=== PATIENT | female | born 1950 | race American Indian/Alaskan Native ===

== ENCOUNTER 2019-01-23 08:35 | Day surgery (SDC) | payer MEDICARE, BC ==
[~2019-01-23] VITALS: Ht 162.6 cm; Wt 73.7 kg
[~2019-01-23 08:35] MED LIST: AMLO5 PO; ATOR10 PO; AZELASTINE137 MCG/0. INH; ESCI10 PO; IRBE150 PO; MAGOX 400400 MG PO
== END 2019-01-23 10:36 | disposition home or self-care (01) ==
LOC: ORSCSDS 08:35
DX: R19.5 Other fecal abnormalities (principal); D12.2 Benign neoplasm of ascending colon; K62.1 Rectal polyp; K57.30 Diverticulosis of large intestine without perforation or abscess without bleeding; K64.8 Other hemorrhoids; K21.9 Gastro-esophageal reflux disease without esophagitis; I10 Essential (primary) hypertension; F41.9 Anxiety disorder, unspecified; E78.5 Hyperlipidemia, unspecified; Z79.899 Other long term (current) drug therapy
CPT/HCPCS: 88305; J7120

== ENCOUNTER → 2022-01-20 | Outpatient (CLI) | payer MEDICARE, BC ==
[2022-01-20 11:42] LABS: BASOPHILS ABSOLUTE AUTO 0.05 K/mm3 (0.00-0.23); BASOPHILS PERCENT AUTO 1 % (0-2); EOSINOPHILS ABSOLUTE AUTO 0.13 K/mm3 (0.00-0.68); EOSINOPHILS PERCENT AUTO 2 % (0-6); Hematocrit 42.4 % (33.0-51.0); IMMATURE GRAN ABSOLUTE AUTO 0.02 K/mm3 (0.00-0.10); IMMATURE GRAN PERCENT AUTO 0 % (0-1); LYMPHOCYTES ABSOLUTE AUTO 1.26 K/mm3 (0.84-5.20); LYMPHOCYTES PERCENT AUTO 17 % (21-46); MONOCYTES ABSOLUTE AUTO 0.74 K/mm3 (0.16-1.47); MONOCYTES PERCENT AUTO 10 % (4-13); Mean Corpuscular HGB 30.8 pg (26.0-34.0); Mean Corpuscular Volume 93 fL (80-100); Mean Platelet Volume 11.3 fL (9.1-12.4); NEUTROPHILS ABSOLUTE AUTO 5.33 K/mm3 (1.96-9.15); NEUTROPHILS PERCENT AUTO 71 % (41-73); Platelet Count 208 K/mm3 (150-400); RDW Coefficient Variation 12.7 % (11.7-14.2); RDW Standard Deviation 43.3 fL (35.1-46.3); Red Blood Cell Count 4.55 M/mm3 (3.80-5.20); White Blood Cell Count 7.53 K/mm3 (4.00-11.30)
[2022-01-20 12:25] LABS: Albumin, Blood 3.9 g/dL (3.4-5.0); Albumin/Globulin Ratio 1.2 (0.8-1.8); Bilirubin, Total 0.5 mg/dL (0.1-1.0); Bun/Creatinine Ratio 21.9 (12.0-20.0); Calcium, Blood 8.6 mg/dL (8.5-10.1); Creatinine, Blood 1.14 mg/dL (0.40-1.00); Globulin, Blood 3.3 g/dL (2.2-4.0); Potassium, Blood 4.4 mmol/L (3.5-5.5); Total Protein, Blood 7.2 g/dL (6.4-8.2)
== END ==
LOC: LAB 11:35 → LAB SHORT 11:35
PROVIDERS: General Practice
DX: R53.81 Other malaise (principal); R82.90 Unspecified abnormal findings in urine
CPT/HCPCS: 80053; 82150; 85025; 87086

== ENCOUNTER 2022-02-09 05:56 | Day surgery (SDC) | payer MEDICARE, BC ==
[~2022-02-09] VITALS: Ht 160 cm; Wt 70.4 kg
[~2022-02-09 05:56] MED LIST changes: +Acerola C500 MG PO; +DEXL60CA3 PO; +MONT10T PO; +MULVITA PO; +NASACORT10.8 ML; +VIT1CAPS12 PO; +VITAMIN D310 MC4 PO; +ZINC15 PO
--- NOTE | 2022-02-09 06:54 | NUR ---
PT RECENTLY Ambulatory in Day Surgery WITH FRIEND. History, Chart, Medications and Allergies reviewed before start of procedure. Lungs clear T/O to Auscultation. Patient confirms NPO status and agrees with scheduled surgery. Pre-Op teaching done. Pt verbalizes understanding. Patient States Post-Procedure ride home has been arranged.
--- NOTE | 2022-02-09 10:24 | NUR ---
PT MEDICATED PER ANESTHESIA WITH 0.5MG OF IV HALDOL. PT OPENS EYES AND ANSWERS QUESTIONS ON COMMAND. IV FLUID BOLUS INFUSING. BP 105/54. HR 85. PT DENIES PAIN. DRESSING ABD X4 CDI.
--- NOTE | 2022-02-09 12:17 | NUR ---
PT ABLE TO DRESS WITH MINIMAL ASSIST. PT RIDE HOME AT BEDSIDE. PT ABLE TO AMBULATE TO W/ [place] ONLY. PT DENIES NAUSEA OR PAIN. DRESSING X4 CDI.
[2022-03-28] MEDS ORDERED: CIPR250 PO (17:52)
[2022-03-28] MEDS ORDERED: CLARITIN-D 121 EAC1 PO (17:54)
[2022-03-29] MEDS ORDERED: ASPI81CH PO (12:35)
== END 2022-02-09 23:59 | disposition home or self-care (01) ==
LOC: ORSCMMR 05:56 → ORD 07:30 → ORSCMMR 23:59
PROVIDERS: Surgery
PROC: BF031ZZ Plain Radiography of Gallbladder and Bile Ducts using Low Osmolar Contrast (ICD-10-PCS; principal; 2022-02-09 07:30)
PROC: 0FT44ZZ Resection of Gallbladder, Percutaneous Endoscopic Approach (ICD-10-PCS; principal; 2022-02-09 07:30)
DX: K80.10 Calculus of gallbladder with chronic cholecystitis without obstruction (principal); I10 Essential (primary) hypertension; K21.9 Gastro-esophageal reflux disease without esophagitis; N18.30 Chronic kidney disease, stage 3 unspecified; F41.9 Anxiety disorder, unspecified; Z79.899 Other long term (current) drug therapy
CPT/HCPCS: 74300; 88304; C1894; J0694; J1100; J1630; J2405; J2550; J2704; J3010; J7120

== ENCOUNTER 2023-03-18 07:39 | Day surgery (SDC) | payer MEDICARE, BC ==
[~2023-03-18] VITALS: Ht 162.6 cm; Wt 71.5 kg
[~2023-03-18 07:39] MED LIST changes: +ASPI81CH PO; +CIPR250 PO; +CLARITIN-D 121 EAC1 PO
[2023-03-18 09:42] VITALS: BP 113/78
== END 2023-03-18 09:45 | disposition home or self-care (01) ==
LOC: ORSCSDS 07:39
PROVIDERS: Internal Medicine Gastroenterology
PROC: 0DBH8ZX Excision of Cecum, Via Natural or Artificial Opening Endoscopic, Diagnostic (ICD-10-PCS; principal; 2023-03-18 09:00)
PROC: 0DBK8ZX Excision of Ascending Colon, Via Natural or Artificial Opening Endoscopic, Diagnostic (ICD-10-PCS; principal; 2023-03-18 09:00)
DX: Z12.11 Encounter for screening for malignant neoplasm of colon (principal); Z86.010 Personal history of colon polyps; D12.0 Benign neoplasm of cecum; D12.2 Benign neoplasm of ascending colon; K57.30 Diverticulosis of large intestine without perforation or abscess without bleeding; Z79.899 Other long term (current) drug therapy
CPT/HCPCS: 88305; J2704; J7120

== ENCOUNTER 2024-06-24 11:16 | Day surgery (SDC) | payer MEDICARE, BC ==
[~2024-06-24] VITALS: Ht 160 cm; Wt 67.2 kg
[~2024-06-24 11:16] MED LIST changes: +Lactated Ringer's 1,000 ML IV ONE
[2024-06-24] MEDS ORDERED: MAGCIT300 (11:54)
[2024-06-24] MEDS ORDERED: Calcium Carbon500 MG (11:54)
[2024-06-24] MEDS ORDERED: Vitamin B-12100 MCG (11:55)
[2024-06-24] MEDS ORDERED: ERGO400 (11:55)
[2024-06-24] MEDS ORDERED: Lactated Ringer's 1,000 ML IV ONE ×2 (12:09→16:30)
[2024-06-24] MEDS ORDERED: FentaNYL Citrate 50 MCG/ML 2 ML Injection ONE (12:44)
[2024-06-24] MEDS ORDERED: ePHEDrine Sulfate 50 MG/ML 1ML Injection ONE (13:35)
[2024-06-24] MEDS ORDERED: Lidocaine 1%-Epineph 1:200000 30 ML SDV INJ ONE (13:39)
[2024-06-24] MEDS ORDERED: Bacitracin Opth Ointment XX ONE (13:50)
[2024-06-24] MEDS ORDERED: Ondansetron HCl 2 MG / ML 2ML Vial ONE ×2 (15:11→15:46)
[2024-06-24] MEDS ORDERED: Phenylephrine HCl 100 MCG/ML-NS 10MLSYR (1MG/10ML) ONE (15:11)
--- NOTE | 2024-06-24 15:41 | NUR ---
06/24/24 1541 Veronique Mark PT. DENIES ANY PAIN. PT. WITH SATS 92% ON RA. PT. WITH ENC. TO TAKE SOME DEEP BREATHS. PT. DOESN'T RESPOND TO NAUSEA WHEN ASKED. PT. VERBALIZES BEING TOO WARM, COVERS PULLED BACK.
[2024-06-24] MEDS ORDERED: Metoclopramide HCl 5MG / ML 2ML Vial ONE (16:08)
--- NOTE | 2024-06-24 16:26 | NUR ---
06/24/24 1626 Veronique Mark PT. TAKEN TO SD. SATS DOWN TO 90% WHEN DOZING. PT. SATS AT TIMES 92% ON RA WITH ENC. OF DEEP BREATHS. PT. PUT ON 2L/NC UNTIL PT. MORE AWAKE.
[2024-06-24 16:27] VITALS: BP 116/65
== END 2024-06-24 18:35 | disposition home or self-care (01) ==
LOC: ORSCSDS 11:16
PROVIDERS: Otolaryngology
PROC: 0GTK0ZZ Resection of Thyroid Gland, Open Approach (ICD-10-PCS; principal; 2024-06-24 12:30)
DX: C73 Malignant neoplasm of thyroid gland (principal); C77.1 Secondary and unspecified malignant neoplasm of intrathoracic lymph nodes; I10 Essential (primary) hypertension; K21.9 Gastro-esophageal reflux disease without esophagitis; J45.909 Unspecified asthma, uncomplicated; Z79.899 Other long term (current) drug therapy
CPT/HCPCS: 88305; 88307; A9270; J2371; J2405; J2765; J3010; J7120

== ENCOUNTER 2024-11-02 08:57 | Emergency (ER) | payer OTHER, MEDICARE, BC ==
[~2024-11-02] VITALS: Ht 160 cm; Wt 71.7 kg
[~2024-11-02 08:57] MED LIST changes: +Calcium Carbon500 MG; +ERGO400; -Lactated Ringer's 1,000 ML IV ONE; +MAGCIT300; +Vitamin B-12100 MCG
[2024-11-02] MEDS ORDERED: Ondansetron HCl 2 MG / ML 2ML Vial IV ONE (09:15)
[2024-11-02] MEDS ORDERED: FentaNYL Citrate 50 MCG/ML 2 ML Injection IV ONE ×2 (09:20→10:00)
[2024-11-02] MEDS ORDERED: Ondansetron HCl 2 MG / ML 2ML Vial ONE (09:22)
[2024-11-02] MEDS ORDERED: Etomidate 2MG / ML 10ML Vial IV ONE (10:10)
[2024-11-02] MEDS ORDERED: FentaNYL Citrate 50 MCG/ML 2 ML Injection ONE (10:28)
[2024-11-02] MEDS ORDERED: Metoclopramide HCl 5MG / ML 2ML Vial IV ONE (11:15)
[2024-11-02] MEDS ORDERED: RX Prepack 6 Tabs Oxycodone 5mg UD ONE (14:00)
[2024-11-02] MEDS ORDERED: OxyCODONE HCL 5 MG TAB PO ONE (14:00)
[2024-11-02 17:00] VITALS: BP 104/59
[2024-11-02] MEDS ORDERED: Percocet 5-3251 EACH PO (17:20)
== END 2024-11-02 17:20 | disposition home or self-care (01) ==
LOC: ER 08:57
DX: S82.852A Displaced trimalleolar fracture of left lower leg, initial encounter for closed fracture (principal); I12.9 Hypertensive chronic kidney disease with stage 1 through stage 4 chronic kidney disease, or unspecified chronic kidney disease; N18.30 Chronic kidney disease, stage 3 unspecified; Z79.899 Other long term (current) drug therapy; W00.2XXA Other fall from one level to another due to ice and snow, initial encounter
CPT/HCPCS: 27818; 73590; 73610; 96374-59; 96375-59; 99152; 99153; 99284-25; J2405; J2765; J3010

== ENCOUNTER 2024-11-04 07:20 | Day surgery (SDC) | payer MEDICARE, BC ==
[~2024-11-04] VITALS: Ht 162.6 cm; Wt 66.2 kg
[~2024-11-04 07:20] MED LIST changes: +Percocet 5-3251 EACH PO
[2024-11-04] MEDS ORDERED: CeFAZolin Sodium 2,000 MG VIAL ONE (07:45)
[2024-11-04] MEDS ORDERED: NS 50 ML IV ONE (07:46)
[2024-11-04] MEDS ORDERED: Lactated Ringer's 1,000 ML IV ONE (08:06)
[2024-11-04] MEDS ORDERED: EUTHYROX175 MCG PO (08:13)
[2024-11-04] MEDS ORDERED: propofoL 20 ML IV ONE (08:38)
[2024-11-04] MEDS ORDERED: FentaNYL Citrate 50 MCG/ML 2 ML Injection ONE (08:39)
[2024-11-04] MEDS ORDERED: Bupivacaine 0.5% HCl 5 MG/ML 30MLVIAL ONE ×2 (08:42→10:21)
[2024-11-04] MEDS ORDERED: Midazolam HCl 1MG / ML 2ML Vial ONE (09:35)
[2024-11-04] MEDS ORDERED: Esmolol HCL 10 MG/ML 10ML VIAL ONE (10:01)
[2024-11-04] MEDS ORDERED: Ondansetron HCl 2 MG / ML 2ML Vial ONE (10:05)
[2024-11-04] MEDS ORDERED: Dexamethasone Sod Phos 10 MG/ML 1ML VIAL ONE (10:05)
[2024-11-04] MEDS ORDERED: Ketorolac Tromethamine 30mg Vial ONE (10:21)
[2024-11-04] MEDS ORDERED: Sugammadex Sodium 200 MG/2ML SDV (100 MG/ML) ONE (10:26)
--- NOTE | 2024-11-04 11:26 | NUR ---
11/04/24 1126 Ramya Villatoro ABDUCTOR CANNAL BLOCK PLACED AT END OF CASE.
--- NOTE | 2024-11-04 13:51 | NUR ---
11/04/24 7242 MICHELLE MAGALLON PT PRESENTED TO PRE OP AREA, PT WAS VERY CONCERNED ABOUT POST OP CARE AND INQUIRED ABOUT KNEE SCOOTER/WALKER WELL HOME HEALTH. PT'S RIDE HOME IS SISTER, DOUGLAS. SHE REPORTS STAYING WITH DOUGLAS FOR 24 HOURS ONCE COMING HOME FROM THE ER, AT WHICH POINT HER SISTER TOOK HER TO "A FRIEND'S HOUSE" WHO LIVED IN THE [place] A[place]. PT REPORTS FALLING MULTIPLE TIMES AT HOME AND IS CONCERNED, REPORTING SHE "NEEDS SOMEONE THERE TO CARE FOR ME AFTER SURGERY". SHE IS INTERESTED IN GETTING ADMITTED TO THE HOSPITAL OR A SNF REHAB FACILITY. DISCUSSED CONCERNS WITH DR. CLARKE IN PRE OP - LEFT NOTE FOR HER AND PT BROUGHT UP HOME HEALTH WELL. DISCUSSED WITH PT'S SISTER - WHO WAS NOT PRESENT IN PRE OP - ABOUT CARE POST OP AND NEED FOR PRESCRIPTION PICKUP. PLAN WAS FOR SISTER TO REHABILITATION SERVICES DIRECTOR PATIENT AND TAKE HER BACK TO FRIEND'S HOUSE FOR RECOVERY. THERE IS CONCERN FROM SISTER THIS WILL NOT BE ADEQUATE FRIEND'S HOUSE IS "A HOARDER HOUSE AND NOT SUITABLE FOR A WALKER" ADVISED I WOULD DISCUSS OPTIONS WITH DR. CLARKE AND OUR STAFF TO DETERMINE PROPER COURSE FOR DC. DR. CLARKE WAS NOTIFIED AND ALSO TOLD PATIENT "WE'LL DEAL WITH THAT LATER" THIS RN CONTACTED CHARGE NURSE, REUBEN GOETZ AND THEN SUBSEQUENTLY MIRIAN OTOOLE REGARDING POST OP CARE AND APPROPRIATENESS OF PATIENT FOR THIS FACILITY. MISAEL WATSON, MATERIAL WORKER DEPARTMENT LEAD, CONTACTED WELL REGARDING PATIENT PLAN FOR DC. MISAEL AND THIS RN IN TO TALK WITH PATIENT AND DISCUSS PLAN POST OP. DR. CLARKE DID COME IN FOR PART OF DISCUSSION, THEN LEFT AGAIN. IT SHOULD BE NOTED PT REPORTED TO MULTIPLE DIFFERENT PEOPLE SHE HAS "MEMORY PROBLEM" AND THERE IS MENTION OF DEMENTIA IN PATIENT CHART. THIS RN NOTED DELAYED THOUGHT PROCESSING AND DIFFICULTY FOR PT TO FIND WORDS, OFTEN FORGETFUL WHEN ANSWERING QUESTIONS. STRUGGLES WITH SOME SIMPLE TASKS, SUCH WORKING HER PHONE. PT STILL ORIENTED TO DATE/TIME/PLACE AND SELF. PER PT REPORTS, SHE IS NOT SURE HER SISTER WILL WANT TO CARE FOR HER SHE TOOK HER TO A FRIEND'S HOUSE AFTER 24 HOURS WITH HER AFTER LEAVING ER. PER ABDULKADIR, HER FRIEND IS ABLE TO BE A "RESOURCE PERSON" FOR 24 HOURS AND AVAILABLE TO SUPERVISE PT UNTIL ANESTHESIA WEARS OFF. AT THAT POINT, DR. CLARKE OFFICE WILL GET HOME HEALTH SET UP FOR PATIENT TO BE AT HOME WITH ASSISTANCE. PT IS IN AGREEANCE WITH THIS PLAN, WELL DR. CLARKE AND MISAEL, MULTI PURPOSE MACHINE OPERATOR.
--- NOTE | 2024-11-04 14:13 | NUR ---
11/04/24 1413 MICHELLE MAGALLON PT'S SISTER PRESENTED TO LUIS ANGEL, THIS RN OVERHEARD HER CHECKING IN TO GET STATUS CHECK ON ABDULKADIR. THIS RN ADVISED PATIENT HAD COME OUT OF OR AND WAS IN THE FIRST STAGE OF RECOVERY, PACU. WE THEN DISCUSSED PLAN FOR DC AND POST OP CARE. DOUGLAS AGAIN RE-ITERATED HER CONCERN WITH TAKING HER SISTER TO THIS FRIEND'S HOUSE FOR CARE POST OPERATIVELY. SHE AGAIN STATED IT IS A "HOARDERS HOUSE" AND IS NOT SURE PT WILL BE ABLE TO NAVIGATE HALLWAYS WITH WALKER. SHE REPORTS THEY HAVE ORDERED A KNEE SCOOTER THAT SHOULD BE HERE SATURDAY, WE DISCUSSED GETTING ONE FROM A LOCAL MEDICAL EQUIPMENT STORE TO HAVE IMMEDIATELY DR. CLARKE WROTE A PRESCRIPTION FOR THIS AND WALKER. DOUGLAS IS IN AGREEMENT AND WILL PURSUE A KNEE SCOOTER OR WALKER LOCALLY. PT'S SISTER IS PRIMARY CAREGIVER FOR [place] MOTHER (94 YR OLD) AND HAS HER LIVING AT HOME. PT'S SISTER EXPRESSED CONCERN AND FRUSTRATION WITH CARING FOR SISTER AND MOTHER AT THE SAME TIME, WELL OTHER MULTIPLE OUTSIDE FACTORS AND STRESSORS. THIS RN DISCUSSED WITH DOUGLAS, SISTER, THE PLAN THAT MISAEL PANCHAL (DEPARTMENT LEAD) AND THIS RN CAME UP WITH. DISCUSSED USE OF THE FRIEND FOR THE FIRST 24 HOURS ONLY A RESOURCE PERSON AND THEN ADDITION OF HOME HEALTH FOR EXTENDED CARE. PT'S SISTER IS HESITANT AND DOUBTFUL OF HELPFULNESS. EXPLAINED THAT PER MISAEL AND DR. CLARKE, IF PT WERE ADMITTED TO HOSPITAL POST OP WITHOUT REASON, SHE COULD BE HELD RESPONSIBLE FOR HOSPITAL BILL, WHICH PT CONFIRMED SHE WOULD NOT BE ABLE TO PAY. PT INQUIRED ABOUT SNF AND WAS ADVISED BY DR. CLARKE THAT THIS IS NOT A SURGERY IN WHICH PEOPLE ARE USUALLY REFERED FOR SNF RECOVERY AND AGAIN COULD BE HELD RESPONSIBLE FOR PAYMENT. PLAN AT END OF DAY IS TO DC PT HOME WITH SISTER TO FRIEND'S HOUSE THEN HOME HEALTH IMPLEMENTATION THIS IS THE BEST COURSE OF OPTION AT THIS TIME. SURGERY WAS IMMINENT AND URGENT D/T FX.
[2024-11-04 14:44] VITALS: BP 131/74
--- NOTE | 2024-11-04 15:05 | NUR ---
11/04/24 1505 Jesus Chavez PT INITIALLY VERY DROWSY UPON ARRIVAL IN SDU. SHE MAINTAINED O2 92-100% ON RA WITH OCCASIONAL DROPS LOW 85%. PT WAS ABLE TO RETURN O2 >92% WITH DEEP BREATHS AND DENIED SOB. PT WAS PLACED ON 3-4L O2, UNTIL SHE BECAME MORE ALERT. O2 WAS TITRATED TO RA AT 1253, AND PT DID NOT DROP BELOW 92% O2 AFTER THAT TIME. D/C PLAN DEVELOPED BY [facility], DR. CLARKE, AND BARREL ASSEMBLER FURTHER DISCUSSED WITH PT'S SISTER, DOUGLAS, AND PT'S DAUGHTER, ABDIAZIZ. THEY CONTINUED TO EXPRESS CONCERNS ABOUT AMBULATION AND MENTATION SIMILAR TO THOSE MENTIONED IN PREVIOUS NOTES. PT WAS WAS PROVIDED WITH EXTRA ICE PACKS AND ENCOURAGED TO SEEK ASSISTANCE FROM HER FREIND WHILE AMBULATING IN HER HOUSE. DOUGLAS STATED HER WOULD BE PRESENT TO ASSIST WITH TRANSFER INTO HOUSE. PT AND DOUGLAS WERE ENCOURAGED TO SEEK EMERGENCY CARE FOR ANY CHANGES IN MENTATION. PT APPEARED ALERT AND ORIENTED, THOUGH FORGETFUL, UPON D/C. SHE DENIED PAIN AND NAUSEA. PT TRANSFERED WITHOUT APPARENT DIFFICULTY BETWEEN RECLINER, WHEELCHAIR, AND CAR.
== END 2024-11-04 13:40 | disposition home or self-care (01) ==
LOC: ORSCSDS 07:20
PROVIDERS: Orthopaedic Surgery
PROC: 0QSH04Z Reposition Left Tibia with Internal Fixation Device, Open Approach (ICD-10-PCS; principal; 2024-11-04 08:45)
PROC: 0QSK04Z Reposition Left Fibula with Internal Fixation Device, Open Approach (ICD-10-PCS; principal; 2024-11-04 08:45)
DX: S82.852A Displaced trimalleolar fracture of left lower leg, initial encounter for closed fracture (principal); I10 Essential (primary) hypertension; E03.9 Hypothyroidism, unspecified; K21.9 Gastro-esophageal reflux disease without esophagitis; Z79.899 Other long term (current) drug therapy
CPT/HCPCS: C1713; C1769; J0690; J1100; J1885; J2250; J2405; J2704; J3010

== ENCOUNTER 2025-10-09 18:21 | Emergency (ER) | payer MEDICARE, BC ==
[~2025-10-09] VITALS: Ht 162.6 cm; Wt 65.8 kg
[~2025-10-09 18:21] MED LIST changes: +EUTHYROX175 MCG PO
[2025-10-09 19:13] LABS: BASOPHILS ABSOLUTE AUTO 0.07 K/mm3 (0.00-0.23); BASOPHILS PERCENT AUTO 1 % (0-2); EOSINOPHILS ABSOLUTE AUTO 0.08 K/mm3 (0.00-0.68); EOSINOPHILS PERCENT AUTO 1 % (0-6); Hematocrit 40.7 % (33.0-51.0); Hemoglobin 13.6 g/dL (11.5-16.0); IMMATURE GRAN ABSOLUTE AUTO 0.02 K/mm3 (0.00-0.10); IMMATURE GRAN PERCENT AUTO 0 % (0-1); LYMPHOCYTES ABSOLUTE AUTO 1.90 K/mm3 (0.84-5.20); LYMPHOCYTES PERCENT AUTO 16 % (21-46); MONOCYTES ABSOLUTE AUTO 1.43 K/mm3 (0.16-1.47); MONOCYTES PERCENT AUTO 12 % (4-13); Mean Corpuscular HGB Conc 33.4 g/dL (31.5-36.5); Mean Corpuscular Volume 91 fL (80-100); NEUTROPHILS ABSOLUTE AUTO 8.75 K/mm3 (1.96-9.15); NEUTROPHILS PERCENT AUTO 71 % (41-73); NRBC ABSOLUTE 0.00 K/mm3 (0.00-0.02); NRBC Auto 0.0 /100 WBC (0.0-0.2); Platelet Count 223 K/mm3 (150-400); RDW Coefficient Variation 12.6 % (11.7-14.2); RDW Standard Deviation 41.9 fL (35.1-46.3)
[2025-10-09 19:22] LABS: Source, Urine Clean Catch
[2025-10-09 19:28] LABS: Bilirubin, Urine Neg (Neg); Color, Urine Yellow (P-Yellow); Glucose Qualitative, Urine Neg (Neg); Ketones, Urine Neg (Neg); Leukocyte Esterase, Urine 2+ (Neg); Protein, Urine 2+ (Neg); Specific Gravity, Urine 1.020 (1.003-1.022); Urobilinogen, Urine 1+ (Normal)
[2025-10-09 19:36] LABS: Alanine Aminotransfer (ALT/SGP 23.0 U/L (12-78); Albumin, Blood 3.9 g/dL (3.4-5.0); Albumin/Globulin Ratio 1.2 (0.8-1.8); Anion Gap 8.0 mmol/L (3-11); Aspartate Aminotrans (AST/SGOT 23.0 U/L (12-37); Bilirubin, Total 0.5 mg/dL (0.1-1.0); Blood Urea Nitrogen 30.0 mg/dL (8-24); CO2, Blood 27.0 mmol/L (21-32); Calcium, Blood 9.1 mg/dL (8.5-10.1); Chloride, Blood 105.0 mmol/L (98-108); Creatinine, Blood 1.53 mg/dL (0.40-1.00); Globulin, Blood 3.2 g/dL (2.2-4.0); Glucose, Blood 120.0 mg/dL (70-99); Potassium, Blood 3.9 mmol/L (3.5-5.5); Sodium, Blood 136.0 mmol/L (136-145); Thyroid Stimulating Hormone 0.222 uIU/mL (0.360-4.800); Total Protein, Blood 7.1 g/dL (6.4-8.2)
[2025-10-09 19:56] LABS: Red Blood Cells, Urine 0-2 /hpf (0-2)
[2025-10-09 21:59] VITALS: BP 115/83
== END 2025-10-09 23:50 | disposition short-term general hospital (02) ==
LOC: ER 18:21
PROVIDERS: Student in an Organized Health Care Education/Training Program
DX: I61.0 Nontraumatic intracerebral hemorrhage in hemisphere, subcortical (principal); E78.5 Hyperlipidemia, unspecified; K21.9 Gastro-esophageal reflux disease without esophagitis; I12.9 Hypertensive chronic kidney disease with stage 1 through stage 4 chronic kidney disease, or unspecified chronic kidney disease; N18.30 Chronic kidney disease, stage 3 unspecified; Z79.899 Other long term (current) drug therapy
CPT/HCPCS: 70450; 80053; 81001; 84439; 84443; 85025; 87077; 87086; 87186; 96372-59; 99285-25